=== PATIENT | female | born 2000 | race Caucasian/White ===

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

== ENCOUNTER → 2018-05-23 | Outpatient (CLI) | payer OTHER ==
[~2018-05-23] MED LIST changes: +MULTI VITAMINS1 TAB PO; +PREDNISONE20 MG PO; +PROVENTIL0.09 MG/A1 IH; +VENTOLIN0.09 MG IH; +VITAMIN C500 MG PO
== END ==
LOC: MC.RAD 05-19 09:00
DX: N63.20 Unspecified lump in the left breast, unspecified quadrant (principal); N63.10 Unspecified lump in the right breast, unspecified quadrant

== ENCOUNTER 2018-09-12 15:16 | Emergency (ER) | payer OTHER, MEDICAID ==
[~2018-09-12] VITALS: Ht 167.6 cm; Wt 61.4 kg
[2018-09-12 15:21] VITALS: TEMP 99.2
[2018-09-12 16:00] LABS: COLLECTION METHOD CLEAN CATCH
[2018-09-12 16:03] LABS: BASO % 0.4 % (0.0-2.0); EOS # 0.1 (0.0-0.7); EOS % 0.6 % (0-4.0); GRAN # 7.3 (1.4-6.5); GRAN % 78.1 % (42.2-75.2); HEMOGLOBIN 12.4 g/dl (12.0-15.0); LYMPH # 1.4 (1.2-3.4); LYMPH % 14.5 % (20.0-51.0); MEAN CELL VOLUME 87 fl (80.0-95.0); MEAN CORPUSCULAR HEMOGLOBIN 29 pg (26.0-32.0); MEAN CORPUSCULAR HGB CONC 34 g/dl (33.0-37.0); MEAN PLATELET VOLUME 10.1 fl (7.4-10.4); MONO # 0.6 (0.1-0.6); MONO % 6.1 % (1.7-9.3); PLATELET COUNT 163 K/mm3 (130-400); RED BLOOD COUNT 4.22 M/mm3 (4.10-5.30); REDCELL DISTRIBUTION WIDTH-CV 18.3 % (11.5-14.5)
[2018-09-12 16:04] LABS: HEMATOCRIT 36.7 % (35.0-45.0)
[2018-09-12 16:09] LABS: PH 6 (5-8); SQUAMOUS EPITHELIAL 0-2 /hpf; URINE APPEARANCE Clear; URINE BACTERIA Rare /hpf; URINE BILIRUBIN Negative (NEGATIVE); URINE BLOOD Negative (NEGATIVE); URINE COLOR Straw; URINE GLUCOSE Negative (NEGATIVE); URINE KETONE Negative (NEGATIVE); URINE LEUKOCYTE ESTERASE 1+ (NEGATIVE); URINE NITRATE Negative (NEGATIVE); URINE PROTEIN(semi-quant) Negative (NEGATIVE); URINE RBC 0-2 /hpf; URINE UROBILINOGEN Negative (NEGATIVE)
[2018-09-12 16:13] LABS: ALBUMIN 3.9 gm/dL (3.5-5.0); BILIRUBIN,TOTAL 0.7 mg/dL (0.0-1.0); CALCIUM 9.3 mg/dL (8.4-10.2); CREATININE, serum 0.34 (0.52-1.25); TOTAL PROTEIN 6.8 gm/dL (6.4-8.2)
[2018-09-12] MEDS ORDERED: CONCEPT DHA1 CAP PO (16:29)
[2018-09-12] MEDS ORDERED: PROFE180 MG PO (16:33)
[2018-09-12] MEDS ORDERED: CEFTIN500 MG PO (16:48)
[2018-09-12] MEDS ORDERED: NORCO 325 MG-51 TAB PO (16:48)
[2018-09-12 17:23] VITALS: BP 108/70; PULSE 92
== END 2018-09-12 17:23 | disposition home or self-care (01) ==
LOC: COL.ER 15:16
PROVIDERS: Emergency Medicine
DX: O23.92 Unspecified genitourinary tract infection in pregnancy, second trimester (principal); Z90.89 Acquired absence of other organs; Z88.5 Allergy status to narcotic agent; Z3A.16 16 weeks gestation of pregnancy
CPT/HCPCS: J3010; J7030

== ENCOUNTER 2018-11-17 14:52 | Inpatient (IN) | payer OTHER, MEDICAID ==
[~2018-11-17] VITALS: Ht 165.1 cm; Wt 64.1 kg
[~2018-11-17 14:52] MED LIST changes: +CEFTIN500 MG PO; +CONCEPT DHA1 CAP PO; +PROFE180 MG PO
--- NOTE | 2018-11-17 15:00 | NUR ---
Patient arrives via wheelchair from ER with complaints of severe back pain, aches "all over", and chills. Patient states she has been being treated for "kidney infections since three months ago". States she was seen in the office for a UA yesterday and restarted on Macrobid PO. Reports spotting yesterday but none today, reports abdominal cramping, denies ROM. Patient appears very uncomfortable. States the office today told her to take Tylenol and rest, but the pain was so severe she wanted to come to the hospital. Patient states she took Tylenol at 0900. UA collected. Patient changes into gown, EFM explained and placed. VS obtained. See documentation. 8240- Dr. Dunham notified via telephone. Updated on patient assessment, complaint, and history. Physician reviewing records from office. Reviewed vital signs and FHR strip. Orders to not send UA, orders for CBC, CMP, LR 1000 ml x1, 1G Rocephin IV, and Switzer 1-2 tabs prn recieved. Physician will come assess patient after clinic to evaluate and decide further plan of care. Patient updated on plan of care.
[2018-11-17 15:30] VITALS: BP 110/64; PULSE 127; TEMP 100.1
--- NOTE | 2018-11-17 15:35 | NUR ---
1535- IV started by Mak Blake RN. Labs obtained, LR infusing per order. See Emar- LR infusion paused, Rocephin 1G given IV per order with NS flush before and after. 1545- Patient sitting upright in bed, maternal heart rate tracing. [place] given, see EMAR. 1555- Patient reports vaginal pressure and increased pain. SVE closed/thick/high.
[2018-11-17 15:47] LABS: BASO % 0.2 % (0.0-2.0); EOS % 0.1 % (0-4.0); GRAN # 11.8 (1.4-6.5); GRAN % 87.5 % (42.2-75.2); HEMOGLOBIN 11.6 g/dl (12.0-15.0); LYMPH # 0.7 (1.2-3.4); MEAN CELL VOLUME 95 fl (80.0-95.0); MEAN CORPUSCULAR HEMOGLOBIN 32 pg (26.0-32.0); MEAN CORPUSCULAR HGB CONC 34 g/dl (33.0-37.0); MEAN PLATELET VOLUME 9.8 fl (7.4-10.4); MONO # 0.9 (0.1-0.6); MONO % 6.9 % (1.7-9.3); PLATELET COUNT 159 K/mm3 (130-400); RED BLOOD COUNT 3.58 M/mm3 (4.10-5.30)
[2018-11-17 15:53] LABS: HEMATOCRIT 33.9 % (35.0-45.0)
[2018-11-17 16:03] LABS: ALBUMIN 3.7 gm/dL (3.5-5.0); BILIRUBIN,TOTAL 1.4 mg/dL (0.0-1.0); CALCIUM 8.5 mg/dL (8.4-10.2); CREATININE, serum 0.46 (0.52-1.25); POTASSIUM 3.5 mmol/L (3.4-5.0); TOTAL PROTEIN 6.7 gm/dL (6.4-8.2)
[2018-11-17 16:30] VITALS: BP 109/58; PULSE 115
--- NOTE | 2018-11-17 16:50 | NUR ---
Dr. schuler on unit. Reviews FHR strip and lab results.
[2018-11-17 16:59] VITALS: BP 111/53; PULSE 116
[2018-11-17] MEDS ORDERED: MACROBID 1100 MG/CAP PO (17:10)
--- NOTE | 2018-11-17 17:18 | NUR ---
Physician reviews FHR strip and vitals. Orders to move patient to floor and obtain NST q shift. Orders for Rocephin for tomorrow recieved, vital signs q 4 hours. Regular diet ordered. Will recheck labs tomorrow.
[2018-11-17 19:18] LABS: TRICYCLIC ANTIDEPRESS URINE NEGATIVE
[2018-11-17 19:30] VITALS: BP 120/55; PULSE 115; TEMP 102
[2018-11-17 20:40] VITALS: PULSE 90; TEMP 100
[2018-11-18 02:00] VITALS: BP 111/62; PULSE 100; TEMP 98.2
--- NOTE | 2018-11-18 03:45 | NUR ---
Awakened for EFM, denies discomfort
[2018-11-18 07:00] VITALS: BP 94/65; PULSE 105; TEMP 98
[2018-11-18 07:35] LABS: BASO % 0.2 % (0.0-2.0); EOS # 0.1 (0.0-0.7); EOS % 0.5 % (0-4.0); GRAN # 8.1 (1.4-6.5); GRAN % 80.5 % (42.2-75.2); HEMOGLOBIN 11.5 g/dl (12.0-15.0); LYMPH # 0.9 (1.2-3.4); MEAN CELL VOLUME 95 fl (80.0-95.0); MEAN CORPUSCULAR HEMOGLOBIN 33 pg (26.0-32.0); MEAN CORPUSCULAR HGB CONC 35 g/dl (33.0-37.0); MEAN PLATELET VOLUME 9.8 fl (7.4-10.4); MONO # 0.9 (0.1-0.6); MONO % 9.4 % (1.7-9.3); PLATELET COUNT 150 K/mm3 (130-400); REDCELL DISTRIBUTION WIDTH-CV 13.3 % (11.5-14.5)
[2018-11-18 07:43] LABS: ALBUMIN 3.4 gm/dL (3.5-5.0); CALCIUM 8.5 mg/dL (8.4-10.2); CREATININE, serum 0.44 (0.52-1.25); POTASSIUM 3.4 mmol/L (3.4-5.0); TOTAL PROTEIN 6.5 gm/dL (6.4-8.2)
[2018-11-18 07:49] LABS: HEMATOCRIT 33.3 % (35.0-45.0)
--- NOTE | 2018-11-18 08:25 | NUR ---
0800: EFMs on for NST. Patient reports good movement. Denies tightening/cramping/contractions. Denies bleeding or leaking of fluid. Patient does report right sided back pain. FHR 140s, moderate variability, positive accelerations, occasional variable decelerations. FHR appropriate for gestational age. on unit, reviews strip.
[2018-11-18 11:50] VITALS: BP 112/67; PULSE 107; TEMP 98.8
[2018-11-18 15:20] VITALS: BP 105/67; PULSE 102; TEMP 98.6
[2018-11-18 19:30] VITALS: BP 107/65; PULSE 98; TEMP 98.9
--- NOTE | 2018-11-18 19:30 | NUR ---
Pt reports right flank and chest pain unrelieved by repositioning and/or heat pad. Pt reports increase in pain with deep breathing. Vital signs WNL with 100% O2 sat on room air. Information reviewed with Dr. Tillman. No new orders at this time, encouraged use of oral pain medication and continued monitoring. Plan of care reviewed with pt. Pt verbalized an understanding, agrees with the plan and states no questions or concerns at this time.
[2018-11-19 00:21] VITALS: BP 102/59; PULSE 97; TEMP 98.6
[2018-11-19 04:45] VITALS: BP 100/62; PULSE 100; TEMP 98.8
[2018-11-19 07:15] VITALS: BP 99/61; PULSE 94; TEMP 98.8
[2018-11-19 11:09] VITALS: BP 98/65; PULSE 99; TEMP 98
[2018-11-19] MEDS ORDERED: NORCO 325 MG-51 TAB PO (11:26)
[2018-11-19] MEDS ORDERED: CEPHALEXIN500 M1 PO (11:27)
[2018-11-19] MEDS ORDERED: VISTARIL 2525 MG/CAP PO (11:27)
== END 2018-11-19 12:30 | disposition home or self-care (01) | DRG 832 ==
LOC: LDRO 14:52 → OB 17:15
PROVIDERS: ADMIT Obstetrics & Gynecology
DX: O23.02 Infections of kidney in pregnancy, second trimester (principal); N13.6 Pyonephrosis; Z3A.26 26 weeks gestation of pregnancy
CPT/HCPCS: A4216; J0696; J3480; J7120

== ENCOUNTER 2019-02-13 09:26 | Inpatient (IN) | payer OTHER, MEDICAID ==
[2019-02-13] VITALS (34 sets, daily range): BP systolic 105–134; BP diastolic 57–87; PULSE 80–116; TEMP 97.6–98.4
[~2019-02-13] VITALS: Ht 170.2 cm; Wt 75.9 kg
[~2019-02-13 09:26] MED LIST changes: +CEPHALEXIN500 M1 PO; +VISTARIL 2525 MG/CAP PO
--- NOTE | 2019-02-13 09:30 | NUR ---
Presents to labor and delivery. States has been having contractions since 0100 this morning. Vag check done, dilated to four with fluid noted with check. Amnio test done, positive. Assessment done, questions offered and answered.
[2019-02-13] MEDS ORDERED: MACROBID 1100 MG/CAP PO (10:08)
--- NOTE | 2019-02-13 10:30 | NUR ---
Assumed care of patient. Patient uncomfortable with contractions, breathing through them, but denies the need for an epidural at this time. Plan of care reviewed.
[2019-02-13 10:52] LABS: BASO % 0.2 % (0.0-2.0); EOS # 0.1 (0.0-0.7); EOS % 0.9 % (0-4.0); GRAN # 7.3 (1.4-6.5); GRAN % 78.2 % (42.2-75.2); HEMATOCRIT 38.3 % (37.0-47.0); HEMOGLOBIN 13.1 g/dl (12.5-16.0); LYMPH # 1.4 (1.2-3.4); LYMPH % 15.4 % (20.0-51.0); MEAN CELL VOLUME 91 fl (80.0-100.0); MEAN CORPUSCULAR HEMOGLOBIN 31 pg (27.0-31.0); MEAN CORPUSCULAR HGB CONC 34 g/dl (33.0-37.0); MEAN PLATELET VOLUME 10.2 fl (7.4-10.4); MONO # 0.5 (0.1-0.6); MONO % 4.9 % (1.7-9.3); PLATELET COUNT 188 K/mm3 (130-400); RED BLOOD COUNT 4.19 M/mm3 (4.10-5.30); REDCELL DISTRIBUTION WIDTH-CV 12.6 % (11.5-14.5)
[2019-02-13 11:00] LABS: TRICYCLIC ANTIDEPRESS URINE NEGATIVE
--- NOTE | 2019-02-13 11:10 | NUR ---
Patient requesting epidural. Jimmy CRNA on unit and notified.
--- NOTE | 2019-02-13 11:20 | NUR ---
SRAVAN Marquez to room to place epidural. Patient sits upright on the side of the bed. FHR difficult to monitor in this position, EFM intermittenly traces maternal HR as it coorelates with maternal spO2 tracing. Test dose administered at 1120, see anesthesia record for details of placement. 1125 Patient wedged to left side.
--- NOTE | 2019-02-13 14:15 | NUR ---
Pitocin started at 2mu per orders and protocol.
--- NOTE | 2019-02-13 16:10 | NUR ---
SVE - complete. Dr. Tillman called and updated.
--- NOTE | 2019-02-13 16:45 | NUR ---
1620 Patient begins to push with contractions. 1627 FHR down to 90 bpm with pushing, FHR stays down for 8 minutes. During this time pushing stopped, patient turned to high left and then to high right side, IVF bolus started, O2 on at 10L per mask, and pitocin turned off. 1639 FHR at 120 bpm, Dr. Tillman called and updated on FHR and pushing. States she will come in to evaluate.
--- NOTE | 2019-02-13 17:34 | NUR ---
1655 Dr. Tillman to room. Patient prepped for delivery. Pitocin restarted at 2mu per orders. 1701 Patient pushing with contractions. 1724 Spontaneous vaginal delivery of viable male by Dr. Tillman. Cord clamped and cut and infant to the care of the nursery RN. 1727 Spontaneous delivery of placenta by Dr. Tillman. Pitocin infusing at 333ml/hr per orders and protocol. Repair of 2nd degree laceration by Dr. Tillman.
--- NOTE | 2019-02-13 19:30 | NUR ---
Skin noted reddened when tape removed securing epidural. no blisters or open areas noted. Pt reports "I just get really itchy with bandaids and stuff"
--- NOTE | 2019-02-13 19:40 | NUR ---
Attempt to stand at bedside. Pt able to stand but not able to lock/control R knee/leg. Assisted back onto bed. Pivot transfer to wheelchair with standby assist of two. Transferred to room via wheelchair. Pivot transfer to bed. Oriented to room,, plan of care, call light use. Instructed pt to call for assistance if needs to get up: verbalizes understanding
--- NOTE | 2019-02-13 21:45 | NUR ---
Up to bathroom with slightly unsteady gait, voids, performs pericare after instruction, back to bed, reminded to not get out of bed without staff assistance , verbalizes understanding.
[2019-02-14 02:00] VITALS: BP 118/60; PULSE 72; TEMP 98.1
[2019-02-14 07:15] VITALS: BP 111/68; PULSE 94; TEMP 97.6
--- NOTE | 2019-02-14 07:15 | NUR ---
Rests in bed, alert. Request pain medication. Ibuprofen 600 mg given per request and as ordered.
--- NOTE | 2019-02-14 09:02 | NUR ---
Initial visit; Parents thanked Social Service Coordinator for offering congratulations and God's blessings for the of their son. Social Service Coordinator thanked family for choosing [facility].
[2019-02-14] MEDS ORDERED: IBU600 MG PO (12:29)
[2019-02-14] MEDS ORDERED: PERCOCET 325 MG1 TA2 PO (12:29)
[2019-02-14 12:30] VITALS: BP 117/64; PULSE 96; TEMP 97.8
--- NOTE | 2019-02-14 17:15 | NUR ---
Rests in bed, alert. Ibuprofen 600 mg given per request and as ordered.
[2019-02-14 21:00] VITALS: BP 111/62; PULSE 82; TEMP 97.4
[2019-02-15 08:30] VITALS: BP 116/62; PULSE 84; TEMP 98.4
== END 2019-02-15 14:20 | disposition home or self-care (01) | DRG 806 ==
LOC: LDRO 09:26 → OB 09:30 → LDR 09:30 → OB 20:15
PROVIDERS: ADMIT Obstetrics & Gynecology
PROC: 10E0XZZ Delivery of Products of Conception, External Approach (ICD-10-PCS; principal; 2019-02-13)
PROC: 0KQM0ZZ Repair Perineum Muscle, Open Approach (ICD-10-PCS; 2019-02-13)
DX: O99.324 Drug use complicating childbirth (principal); O72.1 Other immediate postpartum hemorrhage; Z37.0 Single live birth; F12.90 Cannabis use, unspecified, uncomplicated; Z3A.39 39 weeks gestation of pregnancy; O70.1 Second degree perineal laceration during delivery; Z87.440 Personal history of urinary (tract) infections; O76 Abnormality in fetal heart rate and rhythm complicating labor and delivery; O69.81X0 Labor and delivery complicated by cord around neck, without compression, not applicable or unspecified; Z23 Encounter for immunization
CPT/HCPCS: J2210; J2590; J7120

== ENCOUNTER 2020-07-05 23:34 | Emergency (ER) | payer OTHER ==
[~2020-07-05] VITALS: Ht 172.7 cm; Wt 61.4 kg
[~2020-07-05 23:34] MED LIST changes: +IBU600 MG PO
[2020-07-06 00:02] LABS: COLLECTION METHOD CLEAN CATCH
[2020-07-06 00:06] LABS: BASO # 0.1 (0.0-0.2); EOS # 0.2 (0.0-0.7); GRAN # 4.5 (1.4-6.5); GRAN % 50.6 % (42.2-75.2); HEMOGLOBIN 11.1 g/dl (12.5-16.0); LYMPH # 3.3 (1.2-3.4); LYMPH % 36.9 % (20.0-51.0); MEAN CELL VOLUME 79 fl (80.0-100.0); MEAN CORPUSCULAR HEMOGLOBIN 24 pg (27.0-31.0); MEAN CORPUSCULAR HGB CONC 31 g/dl (33.0-37.0); MEAN PLATELET VOLUME 11.1 fl (7.4-10.4); MONO # 0.8 (0.1-0.6); MONO % 9.3 % (1.7-9.3); PLATELET COUNT 298 K/mm3 (130-400); RED BLOOD COUNT 4.54 M/mm3 (4.10-5.30); REDCELL DISTRIBUTION WIDTH-CV 16.2 % (11.5-14.5)
[2020-07-06 00:07] LABS: HEMATOCRIT 35.8 % (37.0-47.0)
[2020-07-06 00:10] LABS: MUCOUS Present /lpf; PH 5 (5-8); SQUAMOUS EPITHELIAL None Seen /hpf; URINE APPEARANCE Clear; URINE BACTERIA None Seen /hpf; URINE BILIRUBIN Negative (NEGATIVE); URINE BLOOD Negative (NEGATIVE); URINE COLOR Yellow; URINE GLUCOSE Negative (NEGATIVE); URINE KETONE Negative (NEGATIVE); URINE LEUKOCYTE ESTERASE Negative (NEGATIVE); URINE NITRATE Negative (NEGATIVE); URINE PROTEIN(semi-quant) Negative (NEGATIVE); URINE RBC None Seen /hpf; URINE UROBILINOGEN Negative (NEGATIVE)
[2020-07-06 00:15] LABS: ALBUMIN 4.6 gm/dL (3.5-5.0); BILIRUBIN,TOTAL 0.8 mg/dL (0.0-1.0); CALCIUM 8.8 mg/dL (8.4-10.2); CREATININE, serum 0.62 (0.52-1.25); POTASSIUM 3.9 mmol/L (3.4-5.0); TOTAL PROTEIN 8.1 gm/dL (6.4-8.2)
[2020-07-06] MEDS ORDERED: HARD NAILS 2.51 CAP PO (00:19)
[2020-07-06] MEDS ORDERED: NAPROSYN500 MG PO (01:35)
[2020-07-06 01:40] VITALS: BP 127/91; PULSE 85; TEMP 98.3
== END 2020-07-06 01:40 | disposition home or self-care (01) ==
LOC: COL.ER 23:34
PROVIDERS: Emergency Medicine; Nurse Practitioner Primary Care
DX: N39.0 Urinary tract infection, site not specified (principal); J45.909 Unspecified asthma, uncomplicated; Z87.891 Personal history of nicotine dependence; Z32.02 Encounter for pregnancy test, result negative; Z88.6 Allergy status to analgesic agent
CPT/HCPCS: J1885; J7030; Q9967

== ENCOUNTER 2021-10-10 09:54 | Emergency (ER) | payer OTHER ==
[~2021-10-10] VITALS: Ht 167.6 cm; Wt 63.6 kg
[~2021-10-10 09:54] MED LIST changes: +HARD NAILS 2.51 CAP PO; +NAPROSYN500 MG PO
[2021-10-10 10:10] VITALS: TEMP 99.6
[2021-10-10 11:11] LABS: BASO % 0.4 % (0.0-2.0); EOS % 0.1 % (0.0-4.0); GRAN # 6.8 K/mm3 (1.4-6.5); GRAN % 82.7 % (42.2-75.2); HEMOGLOBIN 12.4 g/dl (12.5-16.0); LYMPH # 0.8 K/mm3 (1.2-3.4); LYMPH % 9.5 % (20.0-51.0); MEAN CELL VOLUME 90 fl (80.0-100.0); MEAN CORPUSCULAR HEMOGLOBIN 30 pg (27-31); MEAN CORPUSCULAR HGB CONC 34 g/dl (33.0-37.0); MEAN PLATELET VOLUME 10.4 fl (7.4-10.4); MONO # 0.6 K/mm3 (0.1-0.6); MONO % 7.1 % (1.7-9.3); PLATELET COUNT 168 K/mm3 (130-400); REDCELL DISTRIBUTION WIDTH-CV 12.2 % (11.5-14.5)
[2021-10-10 11:20] LABS: STREP SCREEN NEGATIVE
[2021-10-10 11:26] LABS: ALBUMIN 3.4 gm/dL (3.5-5.0); BILIRUBIN,TOTAL 1.7 mg/dL (0.2-1.2); CALCIUM 8.6 mg/dL (8.4-10.2); CREATININE, serum 0.68 mg/dL (0.57-1.11); POTASSIUM 3.7 mmol/L (3.5-4.5); TOTAL PROTEIN 6.8 gm/dL (6.2-8.1)
[2021-10-10 11:33] LABS: MONOSCREEN NEGATIVE
[2021-10-10] MEDS ORDERED: LIDOCAINE HCL100 M1 MM (11:52)
[2021-10-10 12:15] VITALS: BP 106/74; PULSE 93
== END 2021-10-10 12:16 | disposition home or self-care (01) ==
LOC: COL.ER 09:54
PROVIDERS: Physician Assistant
DX: J02.9 Acute pharyngitis, unspecified (principal); Z90.89 Acquired absence of other organs; Z20.822 Contact with and (suspected) exposure to COVID-19
CPT/HCPCS: J7030

== ENCOUNTER 2022-01-05 08:20 | Emergency (ER) | payer OTHER, BC ==
[2022-01-05] VITALS (73 sets, daily range): BP systolic 120; BP diastolic 81; PULSE 86; TEMP 97.7; O2SAT 94–100
[~2022-01-05] VITALS: Ht 167.6 cm; Wt 59.1 kg
[~2022-01-05 08:20] MED LIST changes: +LIDOCAINE HCL100 M1 MM
[2022-01-05 08:53] LABS: HEMATOCRIT 40.2 % (37.0-47.0); HEMOGLOBIN 13.6 g/dl (12.5-16.0); MEAN CELL VOLUME 88 fl (80.0-100.0); MEAN CORPUSCULAR HEMOGLOBIN 30 pg (27-31); MEAN CORPUSCULAR HGB CONC 34 g/dl (33.0-37.0); MEAN PLATELET VOLUME 10.4 fl (7.4-10.4); PLATELET COUNT 228 K/mm3 (130-400); RED BLOOD COUNT 4.58 M/mm3 (4.10-5.30); REDCELL DISTRIBUTION WIDTH-CV 11.9 % (11.5-14.5)
[2022-01-05 09:12] LABS: ALBUMIN 4.2 gm/dL (3.5-5.0); BILIRUBIN,TOTAL 2.1 mg/dL (0.2-1.2); CALCIUM 8.9 mg/dL (8.4-10.2); CREATININE, serum 0.7 mg/dL (0.57-1.11); POTASSIUM 3.3 mmol/L (3.5-4.5); TOTAL PROTEIN 7.8 gm/dL (6.2-8.1)
[2022-01-05 09:24] LABS: BAND 2 % (0-10); BASOPHIL 1 % (0-2); EOSINOPHIL 1 % (0-4); LYMPHOCYTE 3 % (20.0-51.0); NEUTROPHILS 90 % (42.0-75.2); PLATELET ESTIMATE NORMAL (NORMAL)
[2022-01-05 09:37] LABS: COLLECTION METHOD CLEAN CATCH
[2022-01-05 09:50] LABS: MUCOUS Present (NOT PRESENT); SQUAMOUS EPITHELIAL 0-2 /hpf (0-10); URINE BACTERIA Moderate /hpf (NONE SEEN); URINE RBC 0-2 /hpf (0-2)
[2022-01-05 09:55] LABS: URINE APPEARANCE Clear (CLEAR/HAZY); URINE BLOOD Negative (NEGATIVE); URINE COLOR Yellow (YELLOW); URINE GLUCOSE Negative (NEGATIVE); URINE KETONE 1+ (NEGATIVE); URINE NITRATE Positive (NEGATIVE); URINE PROTEIN(semi-quant) TRACE (NEGATIVE); URINE UROBILINOGEN 0.2 E.U/dL (0.2-1.0)
[2022-01-05] MEDS ORDERED: CEPHALEXIN500 M1 PO (10:18)
[2022-01-05] MEDS ORDERED: ZOFRAN ODT4 MG PO (10:21)
[2022-01-06] MEDS ORDERED: CEPHALEXIN500 M1 PO (20:14)
[2022-01-06] MEDS ORDERED: REGLAN 10MG10 MG/TAB PO (20:14)
[2022-01-06] MEDS ORDERED: NAPROSYN500 MG PO (20:14)
== END 2022-01-05 10:38 | disposition home or self-care (01) ==
LOC: COL.ER 08:20
PROVIDERS: Emergency Medicine
DX: N39.0 Urinary tract infection, site not specified (principal); E87.6 Hypokalemia; Z32.02 Encounter for pregnancy test, result negative
CPT/HCPCS: J0696; J1885; J2405; J7030; Q9967

== ENCOUNTER 2022-01-06 14:08 | Emergency (ER) | payer OTHER, BC ==
[~2022-01-06] VITALS: Ht 170.2 cm; Wt 59.1 kg
[~2022-01-06 14:08] MED LIST changes: +ZOFRAN ODT4 MG PO
[2022-01-06 18:22] VITALS: TEMP 98.6
[2022-01-06 19:00] LABS: BASO % 0.7 % (0.0-2.0); EOS # 0.2 K/mm3 (0.0-0.7); EOS % 2.6 % (0.0-4.0); GRAN # 3.8 K/mm3 (1.4-6.5); GRAN % 61.2 % (42.2-75.2); HEMOGLOBIN 11.9 g/dl (12.5-16.0); LYMPH # 1.7 K/mm3 (1.2-3.4); LYMPH % 28.3 % (20.0-51.0); MEAN CELL VOLUME 89 fl (80.0-100.0); MEAN CORPUSCULAR HEMOGLOBIN 30 pg (27-31); MEAN CORPUSCULAR HGB CONC 34 g/dl (33.0-37.0); MEAN PLATELET VOLUME 10.5 fl (7.4-10.4); MONO # 0.4 K/mm3 (0.1-0.6); PLATELET COUNT 218 K/mm3 (130-400); RED BLOOD COUNT 3.98 M/mm3 (4.10-5.30); REDCELL DISTRIBUTION WIDTH-CV 11.8 % (11.5-14.5)
[2022-01-06 19:02] LABS: HEMATOCRIT 35.3 % (37.0-47.0)
[2022-01-06 19:29] LABS: ALBUMIN 3.8 gm/dL (3.5-5.0); BILIRUBIN,TOTAL 0.9 mg/dL (0.2-1.2); CALCIUM 8.6 mg/dL (8.4-10.2); CREATININE, serum 0.72 mg/dL (0.57-1.11); POTASSIUM 3.2 mmol/L (3.5-4.5); TOTAL PROTEIN 6.9 gm/dL (6.2-8.1)
[2022-01-06 19:53] LABS: BILIRUBIN,DIRECT 0.4 mg/dL (0.0-0.5)
[2022-01-06] MEDS ORDERED: REGLAN 10MG10 MG/TAB PO (20:14)
[2022-01-06] MEDS ORDERED: NAPROSYN500 MG PO (20:14)
[2022-01-06] MEDS ORDERED: CEPHALEXIN500 M1 PO (20:14)
[2022-01-06 20:22] VITALS: BP 110/86; PULSE 79
== END 2022-01-06 20:35 | disposition home or self-care (01) ==
LOC: COL.ER 14:08
PROVIDERS: Emergency Medicine
DX: N10 Acute pyelonephritis (principal); Z88.5 Allergy status to narcotic agent; Z32.02 Encounter for pregnancy test, result negative
CPT/HCPCS: J1885; J2765

== ENCOUNTER 2023-05-10 15:40 | Emergency (ER) | payer BC ==
[~2023-05-10] VITALS: Ht 167.6 cm; Wt 60.0 kg
[~2023-05-10 15:40] MED LIST changes: +FLEXERIL5 MG PO; +REGLAN 10MG10 MG/TAB PO
[2023-05-10 15:48] VITALS: TEMP 98.4
[2023-05-10 16:46] LABS: BASO # 0.1 K/mm3 (0.0-0.2); BASO % 0.8 % (0.0-2.0); EOS # 0.1 K/mm3 (0.0-0.7); GRAN # 3.9 K/mm3 (1.4-6.5); GRAN % 66.1 % (42.2-75.2); LYMPH # 1.4 K/mm3 (1.2-3.4); LYMPH % 24.1 % (20.0-51.0); MEAN CELL VOLUME 89 fl (80.0-100.0); MEAN CORPUSCULAR HGB CONC 32 g/dl (33.0-37.0); MEAN PLATELET VOLUME 10.4 fl (7.4-10.4); MONO # 0.5 K/mm3 (0.1-0.6); MONO % 7.8 % (1.7-9.3); PLATELET COUNT 209 K/mm3 (130-400); REDCELL DISTRIBUTION WIDTH-CV 14.5 % (11.5-14.5)
[2023-05-10 16:48] LABS: HEMATOCRIT 28.6 % (37.0-47.0); HEMOGLOBIN 9.2 g/dl (12.5-16.0); MEAN CORPUSCULAR HEMOGLOBIN 29 pg (27-31)
[2023-05-10 17:04] LABS: ALBUMIN 3.5 gm/dL (3.5-5.0); BILIRUBIN,TOTAL 1.1 mg/dL (0.2-1.2); C-REACTIVE PROTEIN 1.85 mg/dL (0.00-0.50); CALCIUM 8.8 mg/dL (8.4-10.2); CREATININE, serum 0.77 mg/dL (0.57-1.11); POTASSIUM 3.7 mmol/L (3.5-4.5); TOTAL PROTEIN 6.2 gm/dL (6.2-8.1)
[2023-05-10 18:21] VITALS: BP 141/96; PULSE 93
== END 2023-05-10 18:22 | disposition home or self-care (01) ==
LOC: COL.ER 15:40
PROVIDERS: Family Medicine
DX: O34.81 Maternal care for other abnormalities of pelvic organs, first trimester (principal); N83.202 Unspecified ovarian cyst, left side; O99.011 Anemia complicating pregnancy, first trimester; D64.9 Anemia, unspecified; Z3A.01 Less than 8 weeks gestation of pregnancy